=== PATIENT | female | born 1970 | race Caucasian/White ===

== ENCOUNTER 2020-10-31 13:35 | Emergency (ER) | payer BC, SELFPAY ==
--- NOTE | 2020-10-31 13:42 | XRR_ITS ---
PROCEDURE INFORMATION: Exam: XR Chest Exam date and time: 10/31/2020 1:42 PM Age: 50 years old Clinical indication: Cough, dyspnea and shortness of breath. Prior stent placement. Chest pain and weakness. Nausea and vomiting for a couple days. TECHNIQUE: Imaging protocol: XR of the chest. Views: 1 view. COMPARISON: No relevant prior studies available. FINDINGS: Lungs: Minimal scarring or atelectasis at the left base. There is interstitial prominence at the lung bases. The lungs appear hyperinflated. Pleural spaces: No pleural effusion.; No pneumothorax. Heart/Mediastinum: Borderline cardiomegaly. No gross evidence of pneumomediastinum. Bones/joints: No gross fracture. XR/XR chest 1V portable [id number] IMPRESSION: 1. Borderline cardiomegaly. 2. The lungs appear hyperinflated; this could reflect COPD, asthma or other obstructive lung disease. 3. Nonspecific interstitial prominence at the lung bases. Consider CT to further assess.
--- NOTE | 2020-10-31 13:42 | ECG_ITS ---
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 Measurements Intervals [place] Rate: 66 P: 73 WI: 163 QRS: 72 QRSD: 82 T: -72 QT: 441 QTc: 463 Interpretive Statements SINUS RHYTHM POSSIBLE LEFT ATRIAL ENLARGEMENT [-0.1mV P WAVE IN V1/V2] POSSIBLE RIGHT VENTRICULAR CONDUCTION DELAY [RSR (QR) IN V1/V2] ST DEVIATION AND MODERATE T-WAVE ABNORMALITY, CONSIDER ANTEROLATERAL ISCHEMIA [-0.1+ mV T WAVE IN V3-V6] ST DEVIATION AND MODERATE T-WAVE ABNORMALITY, CONSIDER INFERIOR ISCHEMIA [-0.1+ mV T WAVE IN II/aVF] No previous ECG available for comparison Electronically Signed On 10-31-2020 21:17:16 CDT by Clifford Holder M.D. [email or web address]/store/[id number]
[2020-10-31 13:45] VITALS: BP 133/69; PULSE 77; RESP 18; TEMP 37.2; O2SAT 96; BMI 17.9
[2020-10-31 13:58] VITALS: BP 133/69; PULSE 68; RESP 12; O2SAT 98
[2020-10-31 14:06] LABS: Basophils # 0.1 10^3/uL (0.0-0.1); Basophils % 0.8 %; Eosinophils # 0.2 10^3/uL (0.0-0.8); Eosinophils % 1.2 %; Hematocrit 42.2 % (37.0-47.0); Hemoglobin 14.6 g/dL (11.5-15.3); Lymphocytes # 3.2 10^3/uL (0.8-4.8); Lymphocytes % 24.3 %; Mean Corpuscular HGB Conc 34.6 g/dL (30.0-36.0); Mean Corpuscular Hemoglobin 36.2 pg (28.0-34.0); Mean Corpuscular Volume 104.7 fL (81-99); Monocytes # 0.9 10^3/uL (0.2-0.9); Monocytes % 7.1 %; Neutrophils # 8.59 10^3/uL (1.8-7.7); Neutrophils % 66.2 %; Nucleated Red Blood Cells % 0 %; Platelet Count 295 10^3/cmm (130-400); Red Blood Count 4.03 10^6/uL (4.1-5.3); Red Cell Distribution Width 12.7 % (12.1-15.1)
[2020-10-31 14:35] LABS: Troponin(5th) Baseline 9 ng/L (0-10)
[2020-10-31 14:35] LABS: Troponin 5 2HR 7.62 ng/L (0-10)
[2020-10-31 14:42] LABS: Alanine Aminotransferase 53 U/L (0-33); Albumin Level 3.2 g/dL (3.5-5.2); Alkaline Phosphatase 163 IU/L (35-105); Anion Gap 16.7 (5-19); Aspartate Amino Transferase 85 U/L (0-32); Blood Urea Nitrogen 3 mg/dL (6-20); Calcium 8.2 mg/dL (8.5-10.5); Carbon Dioxide 29 mmol/L (22-29); Chloride 97 mmol/L (98-107); Globulin 2.5 g/dL (1.3-4.6); Glomerular Filtration Rate 129.6 mL/min (90-130); Glucose 73 mg/dL (65-115); Lipase 37 U/L (13-60); NT Pro B Type Natriuretic Pept 140 pg/mL (0-125); Osmolality Calculated 285 mOsm/kg (285-295); Sodium 140 mmol/L (136-145); Total Bilirubin 1.1 mg/dL (0.15-1.2); Total Protein 5.7 g/dL (6.6-8.7)
[2020-10-31 14:47] LABS: Potassium 2.7 mmol/L (3.5-5.1)
[2020-10-31 15:41] LABS: D Dimer 1.24 ug/mIFEU (0-0.59)
--- NOTE | 2020-10-31 15:42 | ECG_ITS ---
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 Measurements Intervals [place] Rate: 64 P: 150 NE: 160 QRS: 141 QRSD: 92 T: -31 QT: 415 QTc: 429 Interpretive Statements ECTOPIC ATRIAL RHYTHM LEFT ATRIAL ENLARGEMENT [-0.15mV P WAVE IN V1/V2] POSSIBLE RIGHT VENTRICULAR HYPERTROPHY [SOME/ALL OF: PROMINENT R IN V1, LATE TRANSITION, RAD, BROOKE, SSS] T wave changes, suggestive of anterolateral wall ischemia POSSIBLE INFERIOR MYOCARDIAL INFARCTION [30 ms Q WAVE IN II/aVF], OF INDETERMINATE AGE Compared to ECG 10/31/2020 13:50:18 Ectopic atrial rhythm now present Myocardial infarct finding now present Sinus rhythm no longer present T-wave abnormality no longer present Possible ischemia no longer present Electronically Signed On 11-02-2020 0:39:39 CDT by Clifford Holder M.D. [email or web address].[employer]/store/OM/[id number]
--- NOTE | 2020-10-31 15:43 | CTR_ITS ---
PROCEDURE INFORMATION: Exam: CTA Chest With Contrast Exam date and time: 10/31/2020 3:43 PM Age: 50 years old Clinical indication: The stent. Shortness of breath. Elevated D-dimer. TECHNIQUE: Imaging protocol: Computed tomographic angiography of the chest with contrast. 3D rendering (Not supervised by radiologist): MIP and/or 3D reconstructed images were created by the technologist. Contrast material: OMNI 350; Contrast volume: 68 ml; Contrast route: INTRAVENOUS (IV); COMPARISON: CR XR chest 1V portable [id number] 10/31/2020 1:55 PM RADIATION DOSE METRICS: Total DLP (mGy-cm): 461.76 FINDINGS: Pulmonary arteries: The main pulmonary artery is enlarged suggesting pulmonary arterial hypertension. Assessment for pulmonary embolus is compromised by streak artifact secondary to dense contrast in the SVC, motion artifact and suboptimal bolus timing. No main, central or lobar pulmonary embolus is seen. Aorta: No thoracic aortic aneurysm. No thoracic aortic dissection. Lungs: There is mild peribronchial wall thickening. There is a calcified granuloma in the left lower lobe. There is subsegmental atelectasis in the left lower lobe. No brianna pulmonary consolidation to suggest pneumonia. Subpleural pulmonary micronodules in the right upper lobe measure up to 2.4 mm. A solid pulmonary micronodule in the right lower lobe measures 3.3 mm. Pleural spaces: No pleural effusion.; No pneumothorax. Heart: Coronary arterial calcifications are noted. No pericardial effusion. Mediastinal space: No hiatal hernia. Lymph nodes: No significant mediastinal lymphadenopathy. Liver: There is diffuse hepatic steatosis. There is an indeterminate right adrenal nodule measuring 1.3 cm. Bones/joints: No acute fracture is identified. CT/CT angio chest PE protcl [id number] IMPRESSION: 1. Assessment for pulmonary embolus is compromised by streak artifact secondary to dense contrast in the SVC, motion artifact and suboptimal bolus timing. No main, central or lobar pulmonary embolus is seen. 2. The main pulmonary artery is enlarged suggesting pulmonary arterial hypertension. 3. There is mild peribronchial wall thickening; query viral infection/bronchitis, chronic bronchitis and/or asthma. 4. Solid pulmonary micronodules measure up to 3.3 mm. As per Fleischner Society 2017 guidelines for follow-up and management of pulmonary nodules: For patients at low risk (minimal or absent history of smoking and of other known risk factors), no routine follow-up. For patient at high risk (history of smoking or of other known risk factors), recommend optional CT at 12 months. 5. Coronary artery disease. 6. Diffuse hepatic steatosis. 7. Indeterminate right adrenal nodule. Recommend nonemergent noncontrast CT of the abdomen to better characterize. Radiation Dose CTDIVOL = (mGy): DLP = 461.76 (mGy-cm)
[2020-10-31] MEDS: iohexol 350 mg/mL 100 mL Btl IV (16:29)
[2020-10-31] MEDS: lidocaine 1% 5 ML in potassium chloride premix 100 ML 25 ML IV (16:37)
[2020-10-31 16:39] VITALS: BP 118/48; PULSE 65; RESP 18; O2SAT 96
--- NOTE | 2020-10-31 16:41 | W.ED.CHESTPA ---
HPI - Chest Pain General: Chief Complaint: Chest Pain Stated Complaint: CHEST PAIN, SOB Time Seen by Provider: 10/31/20 13:40 Source: patient Mode of arrival: EMS Limitations: no limitations History of Present Illness: HPI narrative: Patient is a 50-year-old female with a history of Marfan syndrome and hypokalemia who presents to the emergency department with complaints of chest tightness that started this morning. Chest tightness continued to worsen and because of these she was sent to the emergency department to be evaluated. She endorses some dizziness, no nausea or diaphoresis. MD complaint: chest pain Onset (ago): hour(s) (4) Timing of current episode: constant Prior episodes: No Onset: during rest Pain location: substernal Pain radiation: back Severity: severe Quality: tightness Relieving factors: nothing Exacerbating factors: nothing Associated symptoms: Deny abdominal pain, diaphoresis, dyspnea, fever(s), leg edema, nausea, palpitations, sense of impending doom, syncope or vomiting Treatment prior to arrival: none Review of Systems General: Reports: 10 or more systems reviewed and unremarkable except in HPI and below Const: Denies: fever(s) or diaphoresis Card: Denies: palpitations or syncope Resp: Denies: dyspnea GI: Denies: abdominal pain, nausea or vomiting Physical Exam Const: COMMON NORMALS: no acute distress, average body habitus, patient oriented x3, no limitations, healthy appearing, alert and well nourished HENMT: COMMON NORMALS: normocephalic, atraumatic and moist oral mucous membranes HEAD & SCALP: normocephalic and atraumatic Eye: COMMON NORMALS: Equal, round and reactive pupils present, EOMs intact bilaterally, conjunctivae normal and no scleral icterus CONJUNCTIVA: Yes conjunctivae normal PUPIL: Yes Equal, round and reactive pupils present Neck/C-Spine: COMMON NORMALS: no meningeal signs and no JVD Resp: COMMON NORMALS: normal respiratory effort, No retractions, No use of accessory muscles, clear to auscultation bilaterally and percussion normal AUSCULTATION: clear to auscultation bilaterally PERCUSSION: percussion normal Cardio: COMMON NORMALS: no JVD, regular rate, regular rhythm, S1 normal heart sound present, S2 normal heart sound present, No gallops present (Cardio), No clicks present (Cardio), No murmurs present (Cardio), No rub (Cardio) and Peripheral pulses 2+ throughout RATE: regular rate RHYTHM: regular rhythm HEART SOUNDS: S1 normal heart sound present and S2 normal heart sound present PERIPHERAL PULSES: Peripheral pulses 2+ throughout GI: COMMON NORMALS: Normal to inspection, nondistended, normoactive bowel sounds present, Soft to palpation, non-tender, No hepatosplenomegaly present, no masses and no bruits PALPATION: Yes Soft to palpation and Yes No hepatosplenomegaly present Extremity: COMMON NORMALS: normal to inspection, full ROM, capillary refill normal, no calf tenderness and no pedal edema Neuro: COMMON NORMALS: patient oriented x3 SENSORIUM/ORIENTATION: Yes alert MENINGEAL SIGNS: Yes no meningeal signs Course Reevaluation(s): Reevaluation #1: Discussed her lab and imaging findings with her. Potassium low at 2.7, she states that this is usual for her and her potassium is usually low. She is on potassium supplementation but she is not very compliant she states she states that sometimes she forgets to take it. Potassium replaced in the emergency department both orally and intravenously. D-dimer elevated but CTA negative for PE. She will be discharged home with no new orders. She voiced understanding and is in agreement with the plan. Time: 17:06 Vital Signs: Vital signs: Vital Signs Temperature 99.0 F 10/31/20 13:45 Pulse Rate 74 10/31/20 18:50 Respiratory Rate 23 H 10/31/20 18:50 Blood Pressure 122/58 10/31/20 18:50 Pulse Oximetry 99 10/31/20 18:50 MDM - Chest Pain MDM Narrative: Medical decision making narrative: 50-year-old female patient with a history of Marfan syndrome presents to the emergency department with chest pain and shortness of breath. Evaluation in the emergency department shows that she has hypokalemia which appears to be chronic. Otherwise her evaluation was unremarkable and she is discharged home with no new orders. She is advised to be compliant with her potassium supplementation. Medical Records: Attestation: I reviewed the patient's medical records. Lab Data: Attestation: I reviewed the patient's lab results. Labs: Lab Results 10/31/20 10/31/20 10/31/20 Range/Units 11:48 11:48 11:48 WBC 13.0 H (4.0-10.0) 10^3/ uL RBC 4.03 L (4.1-5.3) 10^6/u L Hgb 14.6 (11.5-15.3) g/dL Hct 42.2 (37.0-47.0) % MCV 104.7 H (81-99) fL MCH 36.2 H (28.0-34.0) pg MCHC 34.6 (30.0-36.0) g/dL RDW 12.7 (12.1-15.1) % Plt Count 295 (130-400) 10^3/c mm MPV 10.0 (7.4-10.4) fL Neut % (Auto) 66.2 % Lymph % (Auto) 24.3 % [place] % (Auto) 7.1 % Eos % (Auto) 1.2 % Baso % (Auto) 0.8 % Neut # (Auto) 8.59 H (1.8-7.7) 10^3/u L Lymph # (Auto) 3.2 (0.8-4.8) 10^3/u L [place] # (Auto) 0.9 (0.2-0.9) 10^3/u L Eos # (Auto) 0.2 (0.0-0.8) 10^3/u L Baso # (Auto) 0.1 (0.0-0.1) 10^3/u L Nucleated RBC % (a uto) 0 % Nucleated RBCs # 0.0 /100WBC D-Dimer (0-0.59) ug/mIFE U Sodium 140 (136-145) mmol/L Potassium 2.7 L* (3.5-5.1) mmol/L Chloride 97 L (98-107) mmol/L Carbon Dioxide 29 (22-29) mmol/L Anion Gap 16.7 (5-19) BUN 3 L (6-20) mg/dL Creatinine 0.5 (0.5-0.9) mg/dL GFR Calculation 129.6 (90-130) mL/min Glucose 73 (65-115) mg/dL Calculated Osmolal ity 285 (285-295) mOsm/k g Calcium 8.2 L (8.5-10.5) mg/dL Total Bilirubin 1.1 (0.15-1.2) mg/dL AST 85 H (0-32) U/L ALT 53 H (0-33) U/L Alkaline Phosphata se 163 H (35-105) IU/L Troponin T Baselin e 9 (0-10) ng/L Troponin T 120 Min [place] (0-10) ng/L Delta Troponin T Troponin T Hi Sens 6Hr (0-10) ng/L Troponin T Hi Sens 6Hr Delta (0-12) ng/L NT-Pro-B Natriuret Pep 140 H (0-125) pg/mL Total Protein 5.7 L (6.6-8.7) g/dL Albumin 3.2 L (3.5-5.2) g/dL Globulin 2.5 (1.3-4.6) g/dL Lipase 37 (13-60) U/L 10/31/20 10/31/20 10/31/20 Range/Units 14:05 15:18 18:05 WBC (4.0-10.0) 10^3/ uL RBC (4.1-5.3) 10^6/u L Hgb (11.5-15.3) g/dL Hct (37.0-47.0) % MCV (81-99) fL MCH (28.0-34.0) pg MCHC (30.0-36.0) g/dL RDW (12.1-15.1) % Plt Count (130-400) 10^3/c mm MPV (7.4-10.4) fL Neut % (Auto) % Lymph % (Auto) % [place] % (Auto) % Eos % (Auto) % Baso % (Auto) % Neut # (Auto) (1.8-7.7) 10^3/u L Lymph # (Auto) (0.8-4.8) 10^3/u L [place] # (Auto) (0.2-0.9) 10^3/u L Eos # (Auto) (0.0-0.8) 10^3/u L Baso # (Auto) (0.0-0.1) 10^3/u L Nucleated RBC % (a uto) % Nucleated RBCs # /100WBC D-Dimer 1.24 H (0-0.59) ug/mIFE U Sodium (136-145) mmol/L Potassium (3.5-5.1) mmol/L Chloride (98-107) mmol/L Carbon Dioxide (22-29) mmol/L Anion Gap (5-19) BUN (6-20) mg/dL Creatinine (0.5-0.9) mg/dL GFR Calculation (90-130) mL/min Glucose (65-115) mg/dL Calculated Osmolal ity (285-295) mOsm/k g Calcium (8.5-10.5) mg/dL Total Bilirubin (0.15-1.2) mg/dL AST (0-32) U/L ALT (0-33) U/L Alkaline Phosphata se (35-105) IU/L Troponin T Baselin e (0-10) ng/L Troponin T 120 Min [place] 7.62 (0-10) ng/L Delta Troponin T TNP Troponin T Hi Sens 6Hr 7.98 (0-10) ng/L Troponin T Hi Sens 6Hr Delta -1.02 L (0-12) ng/L NT-Pro-B Natriuret Pep (0-125) pg/mL Total Protein (6.6-8.7) g/dL Albumin (3.5-5.2) g/dL Globulin (1.3-4.6) g/dL Lipase (13-60) U/L Imaging Data^: CTA Chest: Attestation: I personally reviewed and interpreted this imaging study as follows: Radiologist's impression: [address] [id number] Scan ReportSigned Patient: Amanda Doshi #: [id number]: 1970Acct#:[id number]/Sex: 50 / FADM Date: 10/31/20Loc: ERRoom/Bed:Attending Dr: Ordering Provider/Ordering MD: Javon Malin MD, [facility] Date of Service: 10/31/20 Procedure(s): CT angio chest PE protcl [id number] Accession Number(s): [id number] Report Number: [id number] PROCEDURE INFORMATION: Exam: CTA Chest With Contrast Exam date and time: 10/31/2020 3:43 PM Age: 50 years old Clinical indication: The stent. Shortness of breath. Elevated D-dimer. TECHNIQUE: Imaging protocol: Computed tomographic angiography of the chest with contrast. 3D rendering (Not supervised by radiologist): MIP and/or 3D reconstructed images were created by the technologist. Contrast material: OMNI 350; Contrast volume: 68 ml; Contrast route: INTRAVENOUS (IV); COMPARISON: CR XR chest 1V portable [id number] 10/31/2020 1:55 PM RADIATION DOSE METRICS: Total DLP (mGy-cm): 461.76 FINDINGS: Pulmonary arteries: The main pulmonary artery is enlarged suggesting pulmonary arterial hypertension. Assessment for pulmonary embolus is compromised by streak artifact secondary to dense contrast in the SVC, motion artifact and suboptimal bolus timing. No main, central or lobar pulmonary embolus is seen. Aorta: No thoracic aortic aneurysm. No thoracic aortic dissection. Lungs: There is mild peribronchial wall thickening. There is a calcified granuloma in the left lower lobe. There is subsegmental atelectasis in the left lower lobe. No brianna pulmonary consolidation to suggest pneumonia. Subpleural pulmonary micronodules in the right upper lobe measure up to 2.4 mm. A solid pulmonary micronodule in the right lower lobe measures 3.3 mm. Pleural spaces: No pleural effusion.; No pneumothorax. Heart: Coronary arterial calcifications are noted. No pericardial effusion. Mediastinal space: No hiatal hernia. Lymph nodes: No significant mediastinal lymphadenopathy. Liver: There is diffuse hepatic steatosis. There is an indeterminate right adrenal nodule measuring 1.3 cm. Bones/joints: No acute fracture is identified. CT/CT angio chest PE protcl [id number] IMPRESSION: 1. Assessment for pulmonary embolus is compromised by streak artifact secondary to dense contrast in the SVC, motion artifact and suboptimal bolus timing. No main, central or lobar pulmonary embolus is seen. 2. The main pulmonary artery is enlarged suggesting pulmonary arterial hypertension. 3. There is mild peribronchial wall thickening; query viral infection/bronchitis, chronic bronchitis and/or asthma. 4. Solid pulmonary micronodules measure up to 3.3 mm. As per Fleischner Society 2017 guidelines for follow-up and management of pulmonary nodules: For patients at low risk (minimal or absent history of smoking and of other known risk factors), no routine follow-up. For patient at high risk (history of smoking or of other known risk factors), recommend optional CT at 12 months. 5. Coronary artery disease. 6. Diffuse hepatic steatosis. 7. Indeterminate right adrenal nodule. Recommend nonemergent noncontrast CT of the abdomen to better characterize. Radiation Dose CTDIVOL = (mGy): DLP = 461.76 (mGy-cm) Dictated By:Cinthia Duncanigned By:Cinthia Duncanigned Date/Time:10/31/20 1654DD/ 1653 CXR: Attestation: I personally reviewed and interpreted this imaging study as follows: Radiologist's impression: [address] [id number] ReportSigned Patient: Amanda Doshi #: [id number]: 1970Acct#:[id number]/Sex: 50 / FADM Date: 10/31/20Loc: ERRoom/Bed:Attending Dr: Ordering Provider/Ordering MD: Javon Malin MD, [facility] Date of Service: 10/31/20 Procedure(s): XR chest 1V portable [id number] Accession Number(s): [id number] Report Number: [id number] PROCEDURE INFORMATION: Exam: XR Chest Exam date and time: 10/31/2020 1:42 PM Age: 50 years old Clinical indication: Cough, dyspnea and shortness of breath. Prior stent placement. Chest pain and weakness. Nausea and vomiting for a couple days. TECHNIQUE: Imaging protocol: XR of the chest. Views: 1 view. COMPARISON: No relevant prior studies available. FINDINGS: Lungs: Minimal scarring or atelectasis at the left base. There is interstitial prominence at the lung bases. The lungs appear hyperinflated. Pleural spaces: No pleural effusion.; No pneumothorax. Heart/Mediastinum: Borderline cardiomegaly. No gross evidence of pneumomediastinum. Bones/joints: No gross fracture. XR/XR chest 1V portable [id number] IMPRESSION: 1. Borderline cardiomegaly. 2. The lungs appear hyperinflated; this could reflect COPD, asthma or other obstructive lung disease. 3. Nonspecific interstitial prominence at the lung bases. Consider CT to further assess. Dictated By:Cinthia Duncanigned By:Cinthia Duncanigned Date/Time:10/31/20 1526DD/ 1525 EKG Data^: EKG 1: Attestation: I personally reviewed and interpreted this EKG as follows: EKG interpretation date: 10/31/20 EKG interpretation time: 13:50 Prior EKG tracings: not available for review Interpretation: Sinus rhythm. Heart rate [address] changes. EKG 2: Attestation: I personally reviewed and interpreted this EKG as follows: EKG interpretation date: 10/31/20 EKG interpretation time: 15:41 Prior EKG tracings: available for review Interpretation: Sinus rhythm. Heart rate [address] changes. Discharge Plan Discharge Patient Disposition: Home Clinical Impression: Bronchitis, Multiple pulmonary nodules, Adrenal nodule, Chronic hypokalemia Chest pain Qualifiers: Chest pain type: unspecified Qualified Code(s): R07.9 - Chest pain, unspecified Condition: Stable Prescriptions: Continued primidone 50 mg tablet 100 mg PO BEDTIME RF: 0 clopidogrel 75 mg tablet 75 mg PO DAILY@0630 RF: 0 metoprolol tartrate 25 mg tablet 25 mg PO DAILY@0630 RF: 0 Hair,Skin and Nails 1 tab PO DAILY@0630 RF: 0 1 tab PO DAILY@0630 RF: 0 Vitamin D3 1 tab PO DAILY@30 RF: 0 potassium 1 tab PO TID RF: 0 Discharge Orders: Discharge ED (Routine); Ordered 10/31/20 Ordered By: Javon Malin Discharge Diet: Usual diet Discharge Activity: Increase activity as tolerated Patient Instructions: Chest Pain (ED), Hypokalemia (ED), Acute Bronchitis (ED), Pulmonary Nodules (ED) Activity Restrictions/Additional Instructions: Return for any new or worsening symptoms. Follow-up with your primary care provider within 3 days. Since you smoke on you have some spots in your lungs you need a CT scan of your lungs done in 6 to 12 months time to see if there are any changes in the spots. He also noted a CT scan of your abdomen and pelvis to look at the spot on your right adrenal gland. Meanwhile continue home medications. It is important that you are compliant with your medications, especially your potassium. Low potassium can be life-threatening. Make sure you take your potassium as prescribed. Coding Level of Care Code ED Carpenter Inspector for Chg Fwd Exam Comprehensive
[2020-10-31] MEDS: potassium chloride oral liq 20 mEq/15 mL UDC 40 MEQ PO (17:27)
[2020-10-31 18:23] VITALS: BP 123/66; PULSE 72; RESP 20; O2SAT 97
[2020-10-31 18:44] LABS: Troponin 5 6HR 7.98 ng/L (0-10)
[2020-10-31 18:46] LABS: Troponin 5 6HR Delta -1.02 ng/L (0-12)
[2020-10-31 18:50] VITALS: BP 122/58; PULSE 74; RESP 23; O2SAT 99
== END 2020-10-31 18:53 | disposition home or self-care (01) ==
PROVIDERS: Emergency Provider Family Medicine
DX: J40 Bronchitis, not specified as acute or chronic (principal); R91.8 Other nonspecific abnormal finding of lung field; E27.8 Other specified disorders of adrenal gland; E87.6 Hypokalemia; R07.9 Chest pain, unspecified; Z79.02 Long term (current) use of antithrombotics/antiplatelets
CPT/HCPCS: 36415; 71045; 71275; 80053; 83690; 83880; 84484; 85025; 85378; 93005; 96365; 96366; 99284; J3480; Q9967

== ENCOUNTER 2021-09-02 21:22 | Emergency (ER) | payer SELFPAY ==
[2021-09-02 21:30] VITALS: BP 150/79; PULSE 97; RESP 18; TEMP 36.6; O2SAT 96; BMI 17.2
--- NOTE | 2021-09-02 21:41 | ECG_ITS ---
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 Measurements Intervals [place] Rate: 97 P: 75 VA: 140 QRS: 44 QRSD: 89 T: 7 QT: 365 QTc: 466 Interpretive Statements SINUS RHYTHM LEFT ATRIAL ENLARGEMENT [-0.15mV P-WAVE IN V1/V2] POSSIBLE RIGHT VENTRICULAR CONDUCTION DELAY [RSR (QR) IN V1/V2] NONSPECIFIC T-WAVE ABNORMALITY Compared to ECG 10/31/2020 15:41:13 Ectopic atrial rhythm no longer present Possible ischemia no longer present Myocardial infarct finding no longer present T-wave abnormality still present Electronically Signed On 09-03-2021 8:16:37 CDT by Mark Gusman M.D. [email or web address] [id number] f
== END 2021-09-02 22:47 | disposition left against medical advice (07) ==
LOC: ER 21:24
PROVIDERS: Emergency Provider Family Medicine
DX: Z53.21 Procedure and treatment not carried out due to patient leaving prior to being seen by health care provider (principal)
CPT/HCPCS: 93005

== ENCOUNTER 2024-03-31 08:31 | Outpatient (CLI) | payer OTHER, BC, MEDICAID, SELFPAY ==
--- NOTE | 2024-03-31 08:38 | MM_ITS ---
WS: [id number] BILATERAL 3D TOMOSYNTHESIS DIGITAL SCREENING MAMMOGRAM WITH CAD CLINICAL INFORMATION: SCREENING HISTORY: Screening mammogram. No current complaints. COMPARISON: None. TECHNIQUE: Bilateral CC and MLO. FINDINGS: The breast are composed of extremely dense tissue, which can limit the detection of small underlying mass lesions. No suspicious focal mass, asymmetry, calcifications, or architectural distortion. No ev idence of malignancy. Lucent centered calcification LEFT breast. Biopsy clip LEFT breast. Incidental punctate calcifications RIGHT breast. Vascular calcification MM/MM scr tomosynthesis [id number] IMPRESSION: DENSITY: The breasts are heterogeneously dense, which may obscure small masses. BI-RADS: 2 - Benign FOLLOW UP: 1 Year Follow-up Recommend return to annual screening mammography.
== END 2024-03-31 08:32 | disposition home or self-care (01) ==
LOC: RAD 08:33
PROVIDERS: PCP Family Medicine; Visit Provider Family Medicine
DX: Z12.31 Encounter for screening mammogram for malignant neoplasm of breast (principal); R92.333 Mammographic heterogeneous density, bilateral breasts; R92.1 Mammographic calcification found on diagnostic imaging of breast
CPT/HCPCS: 77063; 77067

== ENCOUNTER 2024-07-15 15:09 | Outpatient (CLI) | payer OTHER, MEDICAID, SELFPAY ==
--- NOTE | 2024-07-15 15:28 | MR_ITS ---
WS: [id number] MRI LEFT SHOULDER HISTORY: TRAMATIC TEAR OF LEFT ROTATOR CUFF COMPARISON: None available. TECHNIQUE: Multiplanar sequences of the shoulder joint are submitted. Mild AC joint arthritis. Small amount of fluid in the subacromial and subdeltoid bursa. Minimal subacromial impingement. Normal position of the biceps tendon. No os acromion. Abnormal signal within the humeral head. Serpiginous low signal lines on the T1 sequences and T2 sequences. Variable signal otherwise within the humeral head consistent with a large area of osteonecrosis which extends into the proximal humerus. Moderate tendinopathy in the distal subscapularis tendon but no tear is identified within the tendon. Supraspinatus tendon with intermediate signal distally. Surface fraying but no tear. Normal infraspinatus tendon with no tear. Humeral head is slightly high riding in the glenoid. There is a small amount of fluid in the axillary pouch. Tear involving the superior labrum. Superior labral tear extends anteriorly involving a portion of the anterior labrum. Increased T2 signal surrounding the axillary pouch. MR/MR shoulder LT wo con* [id number] IMPRESSION: 1. Mild AC joint arthritis. 2. 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 Extensive marrow edema. 3. Moderate tendinopathy in the distal subscapularis tendon but no tear. 4. Surface fraying of the supraspinatus tendon but no tear. 5. Superior labral tear extends to involve a small portion of the anterior lab rum. 6. Joint effusion with distention of the axillary pouch. 7. Changes of adhesive capsulitis.
== END 2024-07-15 15:10 | disposition home or self-care (01) ==
PROVIDERS: PCP Family Medicine; Visit Provider Internal Medicine
DX: S46.012A Strain of muscle(s) and tendon(s) of the rotator cuff of left shoulder, initial encounter (principal); M19.012 Primary osteoarthritis, left shoulder; M87.822 Other osteonecrosis, left humerus; R93.6 Abnormal findings on diagnostic imaging of limbs; S43.402A Unspecified sprain of left shoulder joint, initial encounter; X58.XXXA Exposure to other specified factors, initial encounter; M25.412 Effusion, left shoulder
CPT/HCPCS: 73221

== ENCOUNTER 2024-08-04 05:00 | Outpatient (RCR) | payer OTHER, MEDICAID, SELFPAY | END 2024-09-02 23:59 | disposition home or self-care (01) | LOC: TST 05:00 | DX: R47.1 Dysarthria and anarthria (principal); R53.1 Weakness | CPT/HCPCS: 92523 ==

== ENCOUNTER → 2024-08-12 11:07 | Outpatient (BNVA) | payer OTHER, MEDICAID, SELFPAY | PROVIDERS: PCP Family Medicine; Referring Provider Internal Medicine; Visit Provider Student in an Organized Health Care Education/Training Program | DX: M25.512 Pain in left shoulder (principal); M87.812 Other osteonecrosis, left shoulder; M75.42 Impingement syndrome of left shoulder | CPT/HCPCS: 73030 ==

== ENCOUNTER 2024-09-03 05:00 | Outpatient (RCR) | payer OTHER, MEDICAID, SELFPAY | END 2024-10-03 23:59 | disposition home or self-care (01) | LOC: TST 05:00 | PROVIDERS: Visit Provider Nurse Practitioner Family | DX: R47.1 Dysarthria and anarthria (principal); R53.1 Weakness | CPT/HCPCS: 92507 ==

== ENCOUNTER 2024-10-04 05:00 | Outpatient (RCR) | payer OTHER, MEDICAID, SELFPAY | END 2024-11-02 23:59 | disposition home or self-care (01) | LOC: TST 05:00 | PROVIDERS: PCP Internal Medicine; Visit Provider Nurse Practitioner Family | DX: R47.1 Dysarthria and anarthria (principal); R53.1 Weakness | CPT/HCPCS: 92507 ==

== ENCOUNTER 2024-10-13 07:38 | Outpatient (CLI) | payer OTHER, MEDICAID, SELFPAY ==
[2024-10-13 08:05] LABS: Basophils # 0.1 10^3/uL (0.0-0.1); Basophils % 0.7 %; Eosinophils # 0.2 10^3/uL (0.0-0.8); Eosinophils % 2.6 %; Hematocrit 41.8 % (36-47); Lymphocytes # 2.6 10^3/uL (0.8-4.8); Lymphocytes % 34.7 %; Mean Corpuscular HGB Conc 35.2 g/dL (30-55); Mean Corpuscular Hemoglobin 36.5 pg (27-33); Mean Corpuscular Volume 103.7 fl (85-98); Mean Platelet Volume 9.4 fL (7.4-10.4); Monocytes # 0.6 10^3/uL (0.2-0.9); Monocytes % 8.3 %; Neutrophils # 3.96 10^3/uL (1.8-7.7); Neutrophils % 53.3 %; Nucleated Red Blood Cells % 0 %; Platelet Count 206 10^3/cmm (157-399); Red Blood Count 4.03 10^6/uL (3.85-5.65); Red Cell Distribution Width 14.9 % (12.1-15.1); White Blood Count 7.43 10^3/uL (3.29-11.43)
[2024-10-13 08:24] LABS: Alanine Aminotransferase 61 U/L (0-33); Albumin Level 4.2 g/dL (3.5-5.2); Alkaline Phosphatase 88 U/L (35-105); Anion Gap 18.6 (5-19); Aspartate Amino Transferase 80 U/L (0-32); Blood Urea Nitrogen 8 mg/dL (6-20); Calcium 8.7 mg/dL (8.5-10.5); Carbon Dioxide 27 mmol/L (22-29); Chloride 101 mmol/L (98-107); Globulin 3.2 g/dL (1.3-4.6); Glomerular Filtration Rate 165.1 mL/min (90-130); Glucose 144 mg/dL (65-115); Osmolality Calculated 299 mOsm/kg (285-295); Sodium 144 mmol/L (136-145); Total Protein 7.4 g/dL (6.6-8.7)
[2024-10-13 08:37] LABS: Bilirubin Urine Negative (Negative); Blood Urine 1+ (Negative); Glucose Urine UA Negative (Normal); Ketones Urine Negative (Negative); Leukocyte Esterase Urine Trace (Negative); Nitrate Urine Negative (Negative); Protein Urine 1+ (Negative); Specific Gravity, Urine 1.014 (1.005-1.030); Urine Appearance Clear (CLEAR); Urine Color Yellow (Yellow)
[2024-10-13 08:42] LABS: Add Urine Microscopic? YES; Bacteria Urine Trace /hpf; Hyaline Casts Urine 0.81 /lpf; WBC Urine 0-5 /hpf (0-5)
[2024-10-13 09:07] LABS: Potassium 2.6 mmol/L (3.5-5.1)
[2024-10-13 09:09] LABS: Total Bilirubin 0.4 mg/dL (0.15-1.2)
== END 2024-10-13 07:39 | disposition home or self-care (01) ==
PROVIDERS: Visit Provider Student in an Organized Health Care Education/Training Program
DX: Z01.818 Encounter for other preprocedural examination (principal)
CPT/HCPCS: 36415; 80053; 81001; 85025

== ENCOUNTER 2024-10-13 09:53 | Emergency (ER) | payer OTHER, MEDICAID, SELFPAY ==
[2024-10-13 09:58] VITALS: BP 144/77; PULSE 87; RESP 17; TEMP 36.7; O2SAT 97; BMI 15.2
--- NOTE | 2024-10-13 10:11 | ECG_ITS ---
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 Measurements Intervals [place] Rate: 75 P: 80 WV: 171 QRS: 70 QRSD: 90 T: 58 QT: 416 QTc: 468 Interpretive Statements SINUS RHYTHM POSSIBLE RIGHT VENTRICULAR CONDUCTION DELAY [RSR (QR) IN V1/V2] NONSPECIFIC ST & T-WAVE ABNORMALITY Compared to ECG 09/02/2021 21:26:52 Atrial abnormality no longer present T-wave abnormality still present Electronically Signed On 10-14-2024 22:20:13 CDT by Clifford Holder M.D. [email or web address]
--- NOTE | 2024-10-13 10:12 | W.ED.RECABL ---
HPI - Recheck/Abnormal Lab/Rx General: Chief Complaint: Recheck/Abnormal Lab/Rx Stated Complaint: abnormal labs, low potassium Time Seen by Provider: 10/13/24 10:00 Source: patient Mode of arrival: ambulatory Limitations: no limitations History of Present Illness: Patient 54-year-old female who presents to the ED today after she was called for abnormal blood work. She states blood work was ordered routinely for preop clearance as she is expecting upcoming left shoulder surgery by Dr. Abdalla. She was reportedly called due to low potassium. Blood work showing her potassium today was 2.6. The only previous comparison was back in 2020 and it was 2.7. Patient states she has a longstanding history of hypokalemia ever since the sixth grade . She reportedly at one point was on oral potassium but states she stopped taking this due to her insurance not covering this medication. Patient is completely asymptomatic. She does not complain of weakness, nausea, vomiting, diarrhea, palpitations, cramping. complaint: abnormal lab Returns today for: called because of abnormal lab/test Symptoms since prior visit: no new symptoms Context: called for abnormal lab result Associated symptoms: none Related Data Home Medications ?Medication ?Instructions ?Recorded ?Confirmed clopidogrel 75 mg tablet 75 mg PO DAILY@62910/31/20 09/16/24 metoprolol tartrate 25 mg tablet 25 mg PO DAILY@62910/31/20 09/16/24 atorvastatin 80 mg tablet (Lipitor) 80 mg PO DAILY 08/12/24 09/16/24 meloxicam 15 mg tablet 15 mg PO DAILY 08/12/24 09/16/24 Previous Rx's ?Medication ?Instructions ?Recorded potassium chloride 20 mEq 20 meq PO BID 5 days #10 tabs 10/13/24 tablet,extended release(part/cryst) (Klor-Con M) Allergies Allergy/AdvReac Type Severity Reaction Status Date / Time acetaminophen (From [facility]) Allergy Unknown Verified 09/16/24 14:30 nitroglycerin Allergy Unknown Verified 09/16/24 14:30 pamabrom (From [facility]) Allergy Unknown Verified 09/16/24 14:30 Review of Systems Const: Denies: fever(s), chills, body aches, fatigue or malaise Card: Denies: chest pain, palpitations, lightheadedness, syncope or pre-syncope Resp: Denies: dyspnea GI: Denies: nausea, vomiting or diarrhea Musc: Denies: extremity pain, muscle cramps or muscle weakness Neuro: Reports: other (chronic deficits from previous CVA); Denies: headache(s), numbness in extremities, sensory changes, difficulty walking or dizziness [facility] ED PFSH: Social History Smoking and tobacco/nicotine status: current some day tobacco/nicotine user Physical Exam Const: COMMON NORMALS: no acute distress, average body habitus, patient oriented x3, no limitations, healthy appearing, alert and well nourished GENERAL APPEARANCE: cooperative ORIENTATION/CONSCIOUSNESS: Yes awake, Yes oriented to person, Yes oriented to place and Yes oriented to time Resp: COMMON NORMALS: normal respiratory effort and clear to auscultation bilaterally AUSCULTATION: clear to auscultation bilaterally Cardio: COMMON NORMALS: regular rate and regular rhythm RATE: regular rate RHYTHM: regular rhythm Extremity: GENERAL: Yes normal exam except as noted Neuro: ROSALBA COMA SCALE: document GCS findings [place] coma scale eye opening: Spontaneous Rosalba coma scale verbal response: Orientated Rosalba coma scale motor response: Obey commands Rosalba coma scale total score: 15 COMMON NORMALS: patient oriented x3 SENSORIUM/ORIENTATION: Yes alert, Yes oriented to person, Yes oriented to place and Yes oriented to time OTHER: 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 Her potassium upon lab draw this morning was 2.6. She was ordered PO and IV potassium supplementation. Patient adamantly refuses IV potassium. I did check a magnesium here and this was low and so there could be some degree of pseudohypokalemia. She did receive IV magnesium here. Will place her on oral potassium over the next several days at home. Recommend recheck next week. EKG here overall unremarkable. Medical Records I reviewed the patient's medical records. Lab Data I reviewed the patient's lab results. Laboratory Results Magnesium 1.5 mg/dL (1.7-2.3) L 10/13/24 10:24 No radiology studies performed this visit Discharge Plan Discharge Patient Disposition: Home Clinical Impression: Hypokalemia Condition: Stable Prescriptions: New potassium chloride [Klor-Con M20] 20 mEq tablet,ER particles/crystals 20 meq PO BID 5 Days Qty: 10 0RF No Action meloxicam 15 mg tablet 15 mg PO DAILY atorvastatin [Lipitor] 80 mg tablet 80 mg PO DAILY clopidogrel 75 mg tablet 75 mg PO DAILY@0630 metoprolol tartrate 25 mg tablet 25 mg PO DAILY@0630 Discharge Orders: Discharge ED (Routine); Ordered 10/13/24 Ordered By: Cynthia Ibrahim Referrals: Brodie Luna MD [Primary Care Provider, Internal Medicine] Activity Restrictions/Additional Instructions: As we discussed, you need to have labs rechecked next week to recheck your potassium and magnesium. Print Language: Nicaraguan Coding Level of Care Code ED Pressure Tank Operator for Misti Giles
[2024-10-13 10:32] VITALS: BP 130/57; PULSE 82; O2SAT 98
[2024-10-13 10:50] LABS: Magnesium 1.5 mg/dL (1.7-2.3)
[2024-10-13] MEDS: potassium chloride oral liq 20 mEq/15 mL UDC 40 MEQ PO (10:52)
--- NOTE | 2024-10-13 11:00 | PC.NURSE ---
Went in to give pt IV potassium w/lidocaine. Pt refused the K+ due to she has had it before and she states that it montero her veins up and she is not going to get it again.
[2024-10-13 11:02] VITALS: BP 153/81; PULSE 81; O2SAT 99
[2024-10-13] MEDS: magnesium sulfate premix 1 GM/100 ML PIGGYBACK IV (11:06)
[2024-10-13 11:53] VITALS: BP 119/68; PULSE 82; O2SAT 98
== END 2024-10-13 11:54 | disposition home or self-care (01) ==
PROVIDERS: Emergency Provider Physician Assistant; PCP Internal Medicine
DX: E87.6 Hypokalemia (principal); Z79.02 Long term (current) use of antithrombotics/antiplatelets; Z72.0 Tobacco use
CPT/HCPCS: 36415; 83735; 93005; 96365; 99284; J3475; J9999

== ENCOUNTER → 2024-10-14 10:01 | Outpatient (BNVA) | payer OTHER, MEDICAID, SELFPAY | PROVIDERS: PCP Internal Medicine; Visit Provider Family Medicine | DX: Z01.818 Encounter for other preprocedural examination (principal) | CPT/HCPCS: 80048 ==

== ENCOUNTER → 2024-10-29 13:41 | Day surgery (SDC) | payer OTHER, MEDICAID, SELFPAY ==
[2024-10-29 13:54] VITALS: BP 141/76; PULSE 112; RESP 17; TEMP 36.3; O2SAT 98
[2024-10-29 13:56] VITALS: BMI 15.6
[2024-10-29] MEDS: acetaminophen 1,000 MG/100 ML PIGGYBACK 400 MG IV (14:09)
[2024-10-29] MEDS: scopolamine 1 mg PATCH 1 PATCH TRANSDERMA (14:09)
[2024-10-29] MEDS: ketorolac 30 mg/mL INJ IVP (14:10)
[2024-10-29] MEDS: sodium chloride 0.9% 1,000 ML 30 ML IV (14:11)
--- NOTE | 2024-10-29 14:13 | W.PM.OPSFHP ---
Same Day Surgery H&P Indication for Procedure/HPI DATE OF PROCEDURE: October 29, 2024 CHIEF COMPLAINT/INDICATIONFOR SURGICAL PROCEDURE: Left shoulder humeral head avascular necrosis, AC joint arthritis, rotator cuff impingement syndrome, SLAP tear, rotator cuff tendinopathy PREOP DIAGNOSIS: Left shoulder humeral head avascular necrosis, AC joint arthritis, rotator PLANNED PROCEDURE: Operation Date: 10/29/24 14:10 Proposed Procedures p Shoulder Arthroscopy(Left) - Sourav Abdalla, DO s AC Joint Resection(Left) - Sourav Abdalla, DO s Subacromial Decompression(Left) - Sourav Abdalla, DO s possible biceps tenotomy versus tenodesis(Left) - Sourav Abdalla, DO s possible rotator cuff debridement versus repair(Left) - Sourav Abdalla, DO s Arthroplasty Resurfacing Partial Shoulde Core Decompression Humeral Head(Left) - Sourav Abdalla, DO Medications/Allergies* Home Medications ?Medication ?Instructions ?Recorded ?Confirmed ?Type clopidogrel 75 mg tablet (Plavix) 75 mg PO DAILY@62910/31/20 10/28/24 History metoprolol tartrate 25 mg tablet 25 mg PO DAILY@62910/31/20 10/28/24 History atorvastatin 80 mg tablet (Lipitor) 80 mg PO DAILY 08/12/24 10/28/24 History meloxicam 15 mg tablet 15 mg PO DAILY 08/12/24 10/28/24 History tramadol 50 mg tablet 50 mg PO DAILY 10/14/24 10/28/24 History potassium chloride 20 mEq meq PO 10/28/24 History tablet,extended release(part/cryst) Allergies/Adverse Reactions Allergy/AdvReac Type Severity Reaction Status Date / Time acetaminophen (From [facility]) Allergy Unknown Verified 10/28/24 11:29 nitroglycerin Allergy Unknown Verified 10/28/24 11:29 pamabrom (From [facility]) Allergy Unknown Verified 10/28/24 11:29 Pertinent History/Comorbid Conditions* Social History Smoking and tobacco/nicotine status: current every day tobacco/nicotine user Pertinent Exam Findings alert, oriented x 3, operative site marked and procedure specific exam findings Please refer to detailed orthopedic examination on 09/16/2024 listed below: left Shoulder exam: C-Spine ROM:no pain with ROM Spurlings: negative ROM: Passive ROM 165 Active ROM 80 degrees TTP diffuse tenderness palpation about the left shoulder with tenderness to palpation over the proximal humerus. Internal Rotation 4 out of 5 with elbows at the side secondary to pain External Rotation 4 out of 5 with elbows at the side secondary to pain O'Briens: positive Jobes: positive Talley Impingement: Positive Speeds Test:positive Crossover/Neers test:positive Recommendations Risks and benefits of procedure reviewed and Patient/family agree to proceed Surgery/Procedure today Other Plans: Plan to proceed to the OR today for left shoulder diagnostic and surgical arthroscopy with acromioclavicular joint resection, subacromial decompression, possible bicep tenotomy versus tenodesis, possible rotator cuff debridement versus repair and humeral head core decompression. Patient understands the ins and outs procedure the risk the benefits complication alternatives with surgery and through shared decision-making patient elects to proceed with surgical intervention. All questions have been answered at this time. Patient ready to proceed to the OR today. Coding Level of Care Code Acute Code for Chg Fwd
--- NOTE | 2024-10-29 14:31 | P.ANESASSM_ITS ---
Pre-Anesthetic Assessment Height/Weight: Height 1.78 m Weight 49.442 kg Temp Pulse Resp BP Pulse Ox O2 Del Method 97.3 F L 112 H 17 141/76 98 Room Air 10/29/24 13:54 10/29/24 13:54 10/29/24 13:54 10/29/24 13:54 10/29/24 13:54 10/29/24 13:59 Preop Diagnosis: Left shoulder humeral head avascular necrosis, AC joint arthritis, rotator Operation Date: 10/29/24 14:10 Proposed Procedures p Shoulder Arthroscopy(Left) - Sourav Lamar, DO s AC Joint Resection(Left) - Sourav Rm, DO s Subacromial Decompression(Left) - Sourav Lamar, DO s possible biceps tenotomy versus tenodesis(Left) - Sourav Lamar, DO s possible rotator cuff debridement versus repair(Left) - Sourav Lamar, DO s Arthroplasty Resurfacing Partial Shoulde Core Decompression Humeral Head(Left) - Sourav Rm, DO Familial anesthetic complications: None Was Beta Aylin taken within 24 hours: N/A Was Clonidine taken within 24 hours: N/A Last intake: Intake Last Liquid Date 10/28/24 Last Liquid Time 23:59 Last Solid Date 10/27/24 Last Solid Time 00:00 Social Tobacco and No alcohol Exam alert, oriented x 3, clear to auscultation bilaterally and regular rate & rhythm Airway Mallampati: Class I Dentition: false CV/HEM Hypertension and Myocardial Infarction marfan's Metabolic hypokalemia Neuropsych Cerebrovascular Accident Anesthetic Plan ASA status: 4 Anesthesia: General and Regional (specify below) Risk of > 500 ml blood loss (7ml/kg in children): No Medications/Allergies Home Medications ?Medication ?Instructions ?Recorded ?Confirmed ?Last Taken ?Type clopidogrel 75 mg tablet (Plavix) 75 mg PO DAILY@0630 10/31/20 10/28/24 10/25/24 History metoprolol tartrate 25 mg tablet 25 mg PO DAILY@0630 0 10/31/20 10/28/24 10/25/24 History atorvastatin 80 mg tablet (Lipitor) 80 mg PO DAILY 01/2810/28/24 10/25/24 History meloxicam 15 mg tablet 15 mg PO DAILY 08/12/2410/0510/25/24 History tramadol 50 mg tablet 50 mg PO DAILY 10/14/24 06/09/2710/25/24 History potassium chloride 20 mEq 20 meq PO DAILY 10/28/24 Unknown History tablet,extended release(part/cryst) Allergies Allergy/AdvReac Type Severity Reaction Status Date / Time acetaminophen (From [facility]) Allergy Unknown Verified 10/28/24 11:29 nitroglycerin Allergy Unknown Verified 10/29/24 14:29 pamabrom (From [facility]) Allergy Unknown Verified 10/29/24 14:29 Current Medications Generic Name Dose Route Start Last Admin Trade Name Freq PRN Reason Stop Dose Admin Sodium Chloride 1,000 mls @ 30 mls/hr 10/29/24 14:00 10/29/24 14:11 Sodium Chloride 0.9% IV 10/30/24 13:59 30 mls/hr .Q24H DIANE Administration PFSH Anesthesia Social History Smoking and tobacco/nicotine status: current every day tobacco/nicotine user Data Anesthesia 10/29/24 14:07
[2024-10-29 14:36] LABS: Anion Gap 23.9 (5-19); Blood Urea Nitrogen 16 mg/dL (6-20); Calcium 9.4 mg/dL (8.5-10.5); Carbon Dioxide 25 mmol/L (22-29); Chloride 88 mmol/L (98-107); Creatinine Clr Calc Pharmacy 81.7166; Glomerular Filtration Rate 103.4 mL/min (90-130); Glucose 83 mg/dL (65-115); Osmolality Calculated 278 mOsm/kg (285-295); Sodium 134 mmol/L (136-145)
[2024-10-29 14:37] LABS: Potassium 2.9 mmol/L (3.5-5.1)
--- NOTE | 2024-10-29 14:38 | SUR.PREOP ---
Received call from lab, critical lab result potassium level is 2.9. Notified Dr Goldberg
--- NOTE | 2024-10-29 14:51 | PM.MISC ---
Miscellaneous Note Note: Potassium below minimum threshold for proceeding. Decision made to perform case tomorrow. Will bring patient back first thing in morning and infuse potassium 40 mEq over 4 hrs and then proceed. Told patient to take one of her potassium pills tonigh, though patient is chronically low she was told if she feels any racing heart or symptoms to go to ER.
--- NOTE | 2024-10-29 14:55 | SUR.PREOP ---
Dr Goldberg and Dr Abdalla both talked with patient. Her case is postponed until tomorrow due to potassium level. Patient was advised to take her potassium tonight come back in the morning at 6:30 for a potassium infusion. Nurse advised her to not eat or drink anything after midnight tonight in preparation
--- NOTE | 2024-10-29 15:15 | PM.MISC ---
Miscellaneous Note Purpose of Documentation: Orthopedic note update: Patient was seen evaluated by anesthesia updated BMP demonstrates potassium still low at 2.9 recommended by anesthesia would be for a 4-hour infusion at this point time talked about this with patient and family would recommend we have patient come in tomorrow first thing in the morning will undergo potassium infusion with plan on having surgery tomorrow this point in time she was discharged from the preoperative holding area and plan will be for surgery tomorrow after a potassium infusion for recheck. Patient family understand and agree with current plan. All questions answered. Patient will be n.p.o. at midnight. Sourav Abdalla, DO Orthopedic surgery
== END | disposition home or self-care (01) ==
LOC: OR 13:46
PROVIDERS: Anesthesiology; PCP Family Medicine; Visit Provider Student in an Organized Health Care Education/Training Program
PROC: (CPT 29805; principal; 2024-10-29 14:00)
PROC: 0RSH0ZZ Reposition Left Acromioclavicular Joint, Open Approach (ICD-10-PCS; 2024-10-29 14:00)
PROC: (CPT 29826; 2024-10-29 14:00)
PROC: (CPT 23405; 2024-10-29 14:00)
PROC: (CPT 23470; 2024-10-29 14:00)
DX: Z53.8 Procedure and treatment not carried out for other reasons (principal); M87.012 Idiopathic aseptic necrosis of left shoulder
CPT/HCPCS: 36415; 80048; J0131; J1100; J1885; J2250; J2704; J2795; J3010; J7030; J9999

== ENCOUNTER 2024-10-30 06:08 | Day surgery (SDC) | payer OTHER, MEDICAID, SELFPAY ==
[2024-10-30] VITALS (10 sets, daily range): BP systolic 132–173; BP diastolic 46–100; PULSE 76–105; RESP 16–18; TEMP 36.2–36.5; O2SAT 94–100; BMI 15.6
--- NOTE | 2024-10-30 | XR_ITS ---
WS: [id number] XR shoulder LT min 2V* [id number] REASON FOR EXAM: LEFT SHOULDER SCOPE FINDINGS: Surgical instrument overlies the humeral head at the location of the intramedullary signal abnormality on MRI examination 07/15/2024. XR/XR shoulder LT min 2V* [id number] IMPRESSION: Intraoperative humeral head localization as above.
[2024-10-30] MEDS: sodium chloride 0.9% 1,000 ML 30 ML IV (07:48)
[2024-10-30] MEDS: scopolamine 1 mg PATCH 1 PATCH TRANSDERMA (07:52)
--- NOTE | 2024-10-30 10:51 | ANES.PREANE2 ---
Pre-Anesthetic Assessment Height/Weight: Height 5 ft 10 in Weight 109 lb Temp Pulse Resp BP Pulse Ox O2 Del Method 97.7 F 105 H 18 132/81 97 Room Air 10/30/24 07:06 10/30/24 07:06 10/30/24 07:06 10/30/24 07:52 10/30/24 07:06 10/30/24 07:06 Preop Diagnosis: Rotator cuff tear Operation Date: 10/30/24 13:50 Proposed Procedures p Shoulder Arthroscopy(Left) - Sourav Rm, DO s AC Joint Resection(Left) - Sourav Rm, DO s Shoulder Subacromial Decompression(Left) - Sourav [place], DO s possible biceps tenotomy vs tenodesis(Left) - Sourav [place], DO s possible rotator cuff debridement verses repair(Left) - Sourav Rm, DO s Arthroplasty resurfacing partial shoulder core decompression humeral head(Left) - Sourav Rm, DO Was Beta Aylin taken within 24 hours: Yes Was Clonidine taken within 24 hours: N/A Last intake: Intake Last Liquid Date 10/29/24 Last Liquid Time 16:00 Last Solid Date 10/29/24 Last Solid Time 16:00 Social Tobacco and No alcohol Exam alert, oriented x 3 and regular rate & rhythm Airway Submandibular: within normal limits Mallampati: Class I Dentition: false Anesthetic Plan ASA status: 3 Anesthesia: General Other: No prior issues with anesthesia NPO since yesterday evening Patient arrived yesterday for shoulder procedure but was found to have a potassium of 2.9. Patient presented earlier this morning for IV potassium infusion prior to surgery. K+ 3.0 this morning Patient has a history of hypokalemia at baseline History of hypertension on metoprolol Prior CVA, affecting speech. On chronic Plavix last taken 10/25/2024 Prior [facility]. Patient has Marfan syndrome. Denies any issues with her aorta EKG showing sinus rhythm with a mild conduction delay Plan for general anesthesia with preop nerve block Medications/Allergies Home Medications ?Medication ?Instructions ?Recorded ?Confirmed ?Last Taken ?Type clopidogrel 75 mg tablet (Plavix) 75 mg PO DAILY@62910/31/20 10/30/24 10/25/24 History metoprolol tartrate 25 mg tablet 25 mg PO DAILY@62910/31/20 10/30/24 10/29/24 History atorvastatin 80 mg tablet (Lipitor) 80 mg PO DAILY 08/12/24 10/30/24 10/29/24 History meloxicam 15 mg tablet 15 mg PO DAILY 08/12/24 10/30/24 10/29/24 History tramadol 50 mg tablet 50 mg PO DAILY 10/14/24 10/30/24 10/29/24 History potassium chloride 20 mEq 20 meq PO DAILY 10/28/24 10/30/24 10/29/24 History tablet,extended release(part/cryst) Allergies Allergy/AdvReac Type Severity Reaction Status Date / Time acetaminophen (From [facility]) Allergy Unknown Verified 10/30/24 06:28 nitroglycerin Allergy Unknown Verified 10/30/24 06:28 pamabrom (From [facility]) Allergy Unknown Verified 10/30/24 06:28 Current Medications Generic Name Dose Route Start Last Admin Trade Name Freq PRN Reason Stop Dose Admin Sodium Chloride 1,000 mls @ 30 mls/hr 10/30/24 06:45 10/30/24 07:48 Sodium Chloride 0.9% IV 10/31/24 06:44 30 mls/hr .Q24H DIANE Administration Potassium Chloride/ Lidocaine 210 mls @ 50 mls/hr 10/30/24 08:30 10/30/24 08:19 HCl IV 10/30/24 12:41 50 mls/hr ONCE ONE Administration PFSH Anesthesia Social History Smoking and tobacco/nicotine status: current every day tobacco/nicotine user Data Anesthesia 10/30/24 06:44 BMP 10/30/24 06:44 Potassium 3.0 L
--- NOTE | 2024-10-30 11:02 | W.PM.OPSUD ---
Surgery/Procedure H&P Update DATE OF PROCEDURE: October 30, 2024 DATE H&P PERFORMED: 10/29/24 H&P UPDATE INFORMATION: I have reviewed H&P completed within last 30 days, I have examined patient prior to procedure and No changes to prior documentation PREOP DIAGNOSIS: Left shoulder humeral head avascular necrosis, AC joint arthritis, rotator PRIMARY INDICATION FOR PROCEDURE: Left shoulder humeral head avascular necrosis, AC joint arthritis, rotator cuff impingement syndrome, SLAP tear, rotator cuff tendinopathy PLANNED PROCEDURE: Operation Date: 10/30/24 13:50 Proposed Procedures p Shoulder Arthroscopy(Left) - Sourav Abdalla DO s AC Joint Resection(Left) - DO lenin Godinez Shoulder Subacromial Decompression(Left) - DO lenin Godinez possible biceps tenotomy vs tenodesis(Left) - DO lenin Godinez possible rotator cuff debridement verses repair(Left) - DO lenin Godinez Arthroplasty resurfacing partial shoulder core decompression humeral head(Left) - Sourav Abdalla DO
--- NOTE | 2024-10-30 11:42 | PC.NURSE ---
left shoulder intrascalene nerve block using 0.5% ropivicaine
--- NOTE | 2024-10-30 11:53 | ANES.PROC ---
Anesthesia Procedures Procedure/Date: 10/30/24 Nerve Block ^: Nerve Block 1: Main Anesthesia: other Time Out Performed: Yes Consent: requested by attending/covering physician and from patient Nerve block location: interscalene Anesthesia monitors applied: pulse oximetry, EKG, BP cuff and oxygen Nerve block position: supine Anesthetic Used: ropivicaine 0.5% Amount of anesthesia used (mL): 30 Ultrasound used to: recognize landmarks Nerve Stimulator Used?: Yes Interscalene/Femoral BLK: other needle (pjunk 4inch) Injection: neg aspiration of heme Patient Tolerated Procedure: well Complications: none Additional Comments: decadron 4mg added to block
[2024-10-30] MEDS: ketorolac 30 mg/mL INJ IVP (12:01)
[2024-10-30] MEDS: ceFAZolin 2,000 MG in sodium chloride 0.9% (plus) 50 ML 100 MG IV (12:11)
[2024-10-30] MEDS: EPINEPHrine 1 mg/mL INJ 2 MG XX (13:32)
--- NOTE | 2024-10-30 14:41 | P.BOP_ITS ---
Date of Procedure: 10/30/2024 Surgeon: Sourav Abdalla DO Solar Energy Installation Manager(s): None Procedure(s) performed: Left shoulder diagnostic and surgical arthroscopy with rotator cuff repair (small) Left shoulder diagnostic and surgical arthroscopy with biceps tenodesis Left shoulder diagnostic and surgical arthroscopy with AC joint resection (distal clavicle excision) Left shoulder diagnostic and surgical arthroscopy with subacromial decompression (bursectomy/acromioplasty) Left shoulder diagnostic and surgical arthroscopy with labral debridement Left shoulder humeral head core decompression Findings of the procedure(s): Underwent procedure as planned without issues or complications patient was found to have a small rotator cuff tear as well as a SLAP tear with significant biceps tendinitis underwent rotator cuff repair and biceps tenodesis for this. Underwent AC joint resection subacromial decompression as well as labral debridement and then subsequently under fluoroscopic guidance underwent a left shoulder humeral head core decompression. Patient tolerated well without issues or complications taken recovery in stable condition. Estimated blood loss: 10 mL Specimen(s) removed: None Post-operative diagnosis: Left shoulder avascular necrosis humeral head, left shoulder rotator cuff tear (small), left shoulder SLAP tear/biceps tendinitis, AC joint arthritis, subacromial impingement, circumferential labral fraying
--- NOTE | 2024-10-30 14:44 | P.OP_ITS ---
Operative Report Date of procedure: October 30, 2024 Surgeon: Sourav Abdalla DO Procedure: Preoperative diagnosis: Left shoulder humeral head avascular necrosis, AC joint arthritis, rotator cuff impingement syndrome, SLAP tear, rotator cuff tendinopathy Post-op diagnosis:? Left shoulder avascular necrosis humeral head, left shoulder rotator cuff tear (small), left shoulder SLAP tear/biceps tendinitis, AC joint arthritis, subacromial impingement, circumferential labral fraying Procedure done: Left shoulder diagnostic and surgical arthroscopy with rotator cuff repair (small) Left shoulder diagnostic and surgical arthroscopy with biceps tenodesis Left shoulder diagnostic and surgical arthroscopy with AC joint resection (distal clavicle excision) Left shoulder diagnostic and surgical arthroscopy with subacromial decompression (bursectomy/acromioplasty) Left shoulder diagnostic and surgical arthroscopy with labral debridement Left shoulder humeral head core decompression Surgeon: Sourav Abdalla DO Estimated blood loss: [10 ]mL IV fluids: See anesthesia record Implants: Arthrex loop and tack biceps tenodesis kit 4.75 mm Arthrex 4.75 swivel lock Arthrex scorpion and suture tape Complications: None Condition: stable Disposition: same day Brief History: Patient been seen and worked up in the outpatient setting for?Left?shoulder?pain.? Pt had an MRI which showed findings below.? Patient's failed conservative treatment and has weakness.? We talked about treatment options far as nonoperative and operative intervention..? We talked about risk b enefits complication alternatives surgical nonsurgical treatment options.? Understanding risk of surgery pt agrees to proceed with surgical intervention.? All questions have been answered at this time.? Patient elects proceed with surgery and consent obtained in preoperative holding area for left shoulder diagnostic and surgical arthroscopy with acromioclavicular joint resection, suba cromial decompression, possible bicep tenotomy versus tenodesis, possible rotator cuff debridement versus repair and humeral head core decompression. MR/MR shoulder LT wo con* [id number] IMPRESSION: 1. Mild AC joint arthritis. 2. Large area of osteonecrosis involving the humeral head extending into the proximal diaphysis. Extensive marrow edema. 3. Moderate tendinopathy in the distal subscapularis tendon but no tear. 4. Surface fraying of the supraspinatus tendon but no tear. 5. Superior labral tear extends to involve a small portion of the anterior labrum. 6. Joint effusion with distention of the axillary pouch. 7. Changes of adhesive capsulitis. Procedure: Patient seen evaluated in the preoperative holding area.? Consent reviewed and signed with patient.? Once again reviewed patient's MRI results as well as? planned surgical intervention.? Correct extremity marked.? Patient seen evaluated by anesthesia department received regional anesthesia.? Once ready for surgery was taken back to the operative suite.? Patient then subsequently underwent anesthesia per the anesthesia department was transported onto the OR table.? Patient was then placed into a lateral decubitus position with a beanbag and was appropriately secured to the bed.? All bony prominences well-padded.? Patient then had the?Left?upper extremity was then prepped and draped in standard orthopedic fashion.? Patient received appropriate preoperative antibiotics.? Final timeout performed. The?Left?upper extremity was then held in hanging from traction utilizing sterile technique.? Next started with standard diagnostic and surgical arthroscopy with posterior portal position introduced arthroscope into the glenohumeral joint.? Visualized the glenohumeral joint I then introduced a spinal needle within the rotator cuff interval to confirm appropriate anterior portal placement.? Once this was confirmed I then made my small incision and then introduced my arthroscopic shaver into the glenohumeral joint.? After flushing the joint fluid, was clearly evident patient had biceps tendon tearing as well as Superior labral tear. Patient had appreciable unstable biceps anchor most pronounced in the superior labrum. Given there appears to be healthy intra-articular tendon plan was for an intra-articular biceps tenodesis at the superior portion as it enters the intertubercular groove. Also given patient is very thin I felt as though a tenodesis would be a better option than a tenotomy from the standpoint of lower risks/rates of Terry deformity. Thermal wand introduced into the rotator interval. I then release of the rotator interval to have appropriate visualization and the ability to perform biceps tenodesis. At this point I established a purple passport cannula which was introduced. Next I performed an Arthrex loop and tap biceps tenodesis. Passer was then made around the tendon luggage tag stitch around and then thru the tendon and around twice I then utilized a thermal wand to release the biceps tendon at the anchor to perform with tenotomy. I then loaded with suture onto an Arthrex 4.75 swivel lock suture anchor. A punch was then placed in appropriate position at the entry point into the intertubercular groove just superior to the subscapularis tendon. Punch was then introduced to the appropriate depth. The suture loaded on the swivel lock was then advanced held under appropriate tension and shoulder lock anchor was then advanced and had excellent fixation. Excess suture was then cut biceps tenodesis was complete. I then utilized a thermal wand to seal the edges of the superior labrum. Next I evaluated the subscapularis tendon which was intact and no evidence of tear. ?Next there was significant labral tearing at biceps anchor and circumferential.? ? I then subsequently utilized a a arthroscopic shaver and thermal wand to perform a labral debridement.? This point time I then visualized the glenohumeral joint.? 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 At this point in time there was some slight softening on the posterior aspect centrally in the humeral head likely in the area of AVN there is no loose or unstable cartilage At this area. Patient again was noted to having roughly grade II chondromalacia throughout glenohumeral joint. Axillary pouch was free of loose bodies from viewing the posterior portal.? Next a visualized the rotator cuff superiorly and there was found to be a small undersurface tearing of the supraspinatus tendon.? I utilized a spinal needle to nasreen this location.? ?This completed my work within the glenohumeral joint all fluid was suctioned free of the joint.? ?Next I reintroduced the arthroscope posteriorly.? And went to the subacromial space.? I established my lateral working portal at the site of which my spinal needle was marking of the rotator cuff tear.? Thermal wand was then introduced laterally and then I subsequently performed extensive bursectomy of the subacromial space.? Patient had a large anterior bone spur.? At this point time I proceeded with my AC joint resection thermal wand was used and track to the anterior edge of the acromion and then tracked all the way to the AC joint.? Once identified the AC joint this was very arthritic in nature.? Thermal wand was placed anteriorly to establish appropriate plane for AC joint resection.? Once appropriate margins and anterior inferior and anterior capsule was released I then introduced arthroscopic shaver and a bur and performed AC joint resection of both the acromion to cope plane at the AC joint and a distal clavicle resection was then performed totaling 1 cm in size and was confirmed.? This completed my AC joint resection and I then introduced the arthroscopic shaver laterally while continuing to view posteriorly.? I then performed an acromioplasty to complete my subacromial decompression prior to fixing the rotator cuff tear.? Next the arthroscopic shaver was then used previous spinal needle spot that is marked the small hole in the rotator cuff this was consistent with a small full- thickness tear.? Given the small size this did not need a medial and lateral row configuration as result my plan was for a horizontal mattress stitch with a single lateral row anchor.? As result I loaded and Arthrex scorpion with fiber tape and subsequently.? A horizontal mattress purchase appropriately spaced to the small tear of the supraspinatus tendon.? At this point in time and then introduced a shaver to debride the rotator cuff footprint and decorticate the footprint in preparation for repair, next I marked by swivel lock position.? Fiber tape was then loaded into a 4.75 swivel lock I then subsequently punched and then subsequently placement 4.75 swivel lock while maintaining appropriate tension and repair of rotator cuff and this was advanced with excellent fixation I then had a final confirmation of appropriate repair of the supraspinatus rotator cuff tendon tear.? Sutures were then cut with an arthroscopic suture cutter and subsequently evaluated the rotator cuff repair.? Repair was found to be satisfactory?shoulder?was taken through range of motion and the repair moved as a unit with no evidence of loss of fixation. ?I then switched the arthroscope to the lateral portal to confirm this tension- free repair.? I took the?shoulder?through range of motion and the rotator cuff repair was stable and moved as a unit. ?Next I then introduced the arthroscopic shaver posteriorly to complete my subacromial decompression appropriate complaining all the way up to the lateral edge of the acromion.? At this point in time this completed my subacromial decompression I subsequently proceeded with the shoulder core decompression. At this point in time I subsequently brought in mini C arm. I then subsequently reviewed patient's MRI imaging and knowing the mid substance of the humeral head as well as mid substan ce to slightly posterior area where the AVN was located. I then utilized Arthrex's flip cutter. I made a small incision further distal past my arthroscopic portal site. Sharp scalpel incision was made through skin only I subsequently utilized hemostat and bluntly probe directly down to bone and spread creating a tract with care to not injure any neurovascular structures this was then probe directly down to bone under fluoroscopic guidance I subsequently advanced the flip cutter drill bit into the site of the AVN in the humeral head at the mid substance as well as slightly midline and posterior on the lateral. I took multiple orthogonal images confirming of being in satisfactory location this was advanced up into the subchondral region into the site of the lesion I then subsequently biased this in multiple directions while on full speed and then once this was subsequently completed this allowed me to then use the flip cutter which that was subsequently flipped cut to 8 mm and then I reverse reamed this site to perform the core decompression I did not come out of the lateral cortices here and just did this all within the humeral head at the site of AVN. At this point in time satisfied with my decompression the flip cutter was then set back to 3.5 and then was subsequently removed atraumatically. At this point in time I then subsequently took the arthroscopy scope and it Bueno is back into the glenohumeral joint once again confirming of not perforating intra articular and the cartilage was intact with good integrity. This completed the surgery. This completed the surgery.? All fluid was suctioned from the?shoulder.? All instruments were removed.? The lateral incision was then closed with nylon stitches.? As well as the portal sites closed with portal nylon stitches.? Xeroform 4 x 4's ABD and tape was then applied to the?Left?shoulder?and was placed into a?shoulder?abduction pillow sling for rotator cuff repair.? Patient was then awakened from anesthesia and then taken back to PACU in stable condition.? Patient tolerated procedure without any issues. Disposition: Patient taken back in stable condition recovering well.? Dressings on in place clean dry and intact.? Will be nonweightbearing to the?Left?upper extremity.? Follow rotator cuff repair protocol.? Patient to follow-up with me in the office in 2 weeks.? Patient will receive appropriate discharge instruction as well as pain medication postoperatively.? All questions answered.? We will contact the office for any questions or concerns.
--- NOTE | 2024-10-30 15:30 | ANE.PACU2 ---
Inpatient post-anesthesia follow up: Airway intact: Yes Vital signs: Temperature 97.2 F Pulse Rate 76 Respiratory Rate 16 Blood Pressure 140/46 Pulse Oximetry 94 Oxygen Delivery Me thod Room Air Oxygen Flow Rate 8 Fraction of Inspir ed Oxygen Hydration adequate: Yes Nausea and vomiting: No Pain level: 1 Mental status: Baseline
== END 2024-10-30 15:30 | disposition home or self-care (01) ==
PROVIDERS: Student in an Organized Health Care Education/Training Program; PCP Family Medicine; Visit Provider Student in an Organized Health Care Education/Training Program
PROC: (CPT 29805; principal; 2024-10-30 13:30)
PROC: 0RSH0ZZ Reposition Left Acromioclavicular Joint, Open Approach (ICD-10-PCS; CPT 29827; 2024-10-30 13:30)
PROC: (CPT 29826; 2024-10-30 13:30)
PROC: (CPT 23430; 2024-10-30 13:30)
PROC: 0LQ24ZZ Repair Left Shoulder Tendon, Percutaneous Endoscopic Approach (ICD-10-PCS; CPT 29827; 2024-10-30 13:30)
PROC: (CPT 29827; 2024-10-30 13:30)
DX: M87.012 Idiopathic aseptic necrosis of left shoulder (principal); M19.012 Primary osteoarthritis, left shoulder; M75.42 Impingement syndrome of left shoulder; S43.432A Superior glenoid labrum lesion of left shoulder, initial encounter; X58.XXXA Exposure to other specified factors, initial encounter; M75.22 Bicipital tendinitis, left shoulder; Z86.73 Personal history of transient ischemic attack (TIA), and cerebral infarction without residual deficits; I25.2 Old myocardial infarction; F17.200 Nicotine dependence, unspecified, uncomplicated
CPT/HCPCS: 29827; 29828; 29826; 29824; 36415; 73030; 76000; 84132; C1713; J0171; J0690; J1885; J3480; J7030; J9999

== ENCOUNTER → 2024-11-17 14:23 | Outpatient (BNVA) | payer OTHER, MEDICAID, SELFPAY | PROVIDERS: PCP Family Medicine; Visit Provider Student in an Organized Health Care Education/Training Program | DX: Z98.890 Other specified postprocedural states (principal); M75.102 Unspecified rotator cuff tear or rupture of left shoulder, not specified as traumatic; M75.42 Impingement syndrome of left shoulder; S43.432D Superior glenoid labrum lesion of left shoulder, subsequent encounter; M19.012 Primary osteoarthritis, left shoulder; X58.XXXD Exposure to other specified factors, subsequent encounter | CPT/HCPCS: 73030 ==

== ENCOUNTER 2024-12-04 05:00 | Outpatient (RCR) | payer OTHER, MEDICAID, SELFPAY | END 2025-01-03 23:59 | disposition home or self-care (01) | LOC: TPT 05:00 | PROVIDERS: Visit Provider Student in an Organized Health Care Education/Training Program | DX: Z98.890 Other specified postprocedural states (principal) | CPT/HCPCS: 97110; 97162 ==

== ENCOUNTER 2025-01-04 06:30 | Outpatient (RCR) | payer OTHER, MEDICAID, SELFPAY | END 2025-01-15 13:36 | disposition home or self-care (01) | LOC: TPT 06:30 | PROVIDERS: Visit Provider Student in an Organized Health Care Education/Training Program | DX: Z98.890 Other specified postprocedural states (principal) | CPT/HCPCS: 97110 ==

== ENCOUNTER → 2025-01-27 10:55 | Outpatient (BNVA) | payer OTHER, MEDICAID, SELFPAY | PROVIDERS: PCP Internal Medicine; Visit Provider Student in an Organized Health Care Education/Training Program | DX: Z98.890 Other specified postprocedural states (principal); M25.532 Pain in left wrist; S52.502A Unspecified fracture of the lower end of left radius, initial encounter for closed fracture; S42.002A Fracture of unspecified part of left clavicle, initial encounter for closed fracture; W19.XXXA Unspecified fall, initial encounter | CPT/HCPCS: 73030; 73110 ==

== ENCOUNTER 2025-01-27 12:16 | Outpatient (CLI) | payer OTHER, MEDICAID, SELFPAY | END 2025-01-27 12:17 | disposition home or self-care (01) | LOC: SPT 12:16 | PROVIDERS: PCP Internal Medicine; Visit Provider Student in an Organized Health Care Education/Training Program | DX: Z46.89 Encounter for fitting and adjustment of other specified devices (principal); S42.002D Fracture of unspecified part of left clavicle, subsequent encounter for fracture with routine healing; S52.592D Other fractures of lower end of left radius, subsequent encounter for closed fracture with routine healing; X58.XXXD Exposure to other specified factors, subsequent encounter | CPT/HCPCS: A4565; L3982 ==

== ENCOUNTER → 2025-03-02 14:42 | Outpatient (BNVA) | payer OTHER, MEDICAID, SELFPAY | PROVIDERS: PCP Internal Medicine; Visit Provider Student in an Organized Health Care Education/Training Program | DX: S42.002A Fracture of unspecified part of left clavicle, initial encounter for closed fracture (principal); S52.502A Unspecified fracture of the lower end of left radius, initial encounter for closed fracture; X58.XXXA Exposure to other specified factors, initial encounter | CPT/HCPCS: 73000; 73110 ==

== ENCOUNTER 2025-03-02 16:17 | Outpatient (CLI) | payer OTHER, MEDICAID, SELFPAY | END 2025-03-02 16:18 | disposition home or self-care (01) | LOC: SPT 16:17 | PROVIDERS: PCP Internal Medicine; Visit Provider Student in an Organized Health Care Education/Training Program | DX: Z46.89 Encounter for fitting and adjustment of other specified devices (principal); S52.502D Unspecified fracture of the lower end of left radius, subsequent encounter for closed fracture with routine healing; X58.XXXD Exposure to other specified factors, subsequent encounter | CPT/HCPCS: L3908 ==